=== PATIENT | female | born 1970 | race Caucasian/White ===

== ENCOUNTER → 2017-06-15 | Outpatient (CLI) | payer OTHER ==
[~2017-06-15] MED LIST: ACETAMINOPHEN/B1 TA1 PO; AMBIEN5 MG PO; AMITRIPTYLINE50 MG PO; BUTALBITAL-ASPI1 CAP PO; CEFDINIR300 MG PO; CLARITIN10 MG PO; CLEOCIN HCL300 MG PO; DOXYCYCLINE100 M3 PO; FEROSUL325 MG PO; Fioricet 325 MG1 TAB PO; IRON90 MG PO; LEVOTHYROXIN0.025 MG PO; Motrin,Rufen800 MG PO; NATURE MADE IRON PO; PREDNISONE50 MG PO; PROAIR HFA8.5 GM INH; RESTORIL30 M1 PO; SEPTRA DS 800 M1 TAB PO; Synthroid,Levo50 MCG PO; TESSALON PERLE100 M1 PO; VIBRAMYCIN100 MG PO; VITAMIN B-12500 MC2 PO; VITAMIN C500 M4 PO; VITAMIN D1000 IU PO; VITAMIN D50000 UNIT PO; ZYRTEC10 MG PO; Zofran4 MG PO
[2017-06-15 17:21] LABS: BASO # 0.1 10*3/uL (0.0-0.1); BASO % 0.9 % (0.0-1.0); EOS # 0.4 10*3/uL (0.0-0.4); EOS % 5.5 % (1.0-4.0); HEMATOCRIT 40.2 % (37.0-47.0); HEMOGLOBIN 12.7 g/dl (12.0-16.0); LYMPH # 1.5 10*3/uL (1.3-4.4); LYMPH % 21.1 % (27.0-41.0); MEAN CELL VOLUME 96.2 fl (81.0-99.0); MEAN CORPUSCULAR HGB 30.4 pg (27.0-31.0); MEAN CORPUSCULAR HGB CONC 31.6 g/dl (33.0-37.0); MEAN PLATELET VOLUME 10.2 fl (9.6-12.3); MONO # 0.5 10*3/uL (0.1-1.0); MONO % 7.4 % (3.0-9.0); NEUT # 4.6 10*3/uL (2.3-7.9); PLATELET COUNT AUTOMATED 266 10*3/uL (130-400); RED BLOOD COUNT 4.18 10*6/uL (4.10-5.10); RED CELL DISTRI WIDTH 12.9 % (0-14.5)
[2017-06-15 17:40] LABS: ALBUMIN 3.4 gm/dl (3.1-4.5); ALKALINE PHOSPHATASE 95 U/L (45-117); BUN 12 mg/dl (7-24); CHLORIDE 106 mmol/L (98-107); CREATININE 0.74 mg/dL (0.55-1.02); POTASSIUM 4.3 mmol/L (3.5-5.1); SGOT/AST 22 IU/L (3-35); SGPT/ALT 23 U/L (12-78); SODIUM 139 mmol/L (136-145); TOTAL PROTEIN 7.5 gm/dL (6.4-8.2)
[2017-06-15 17:50] LABS: VITAMIN D, 25-HYDROXY 11.6 ng/mL (30-100)
[2017-06-16 08:52] LABS: THYROXINE (T4) TOTAL 6.3 ug/dl (4.8-13.9)
[2017-06-16 08:53] LABS: T3 UPTAKE 31 % (31-39)
== END | disposition home or self-care (01) ==
LOC: LAB 16:49
PROVIDERS: Emergency Medicine
DX: J45.909 Unspecified asthma, uncomplicated (principal); I10 Essential (primary) hypertension; R79.89 Other specified abnormal findings of blood chemistry; E55.9 Vitamin D deficiency, unspecified

== ENCOUNTER 2017-07-10 09:31 | Emergency (ER) | payer OTHER ==
[~2017-07-10] VITALS: Ht 165.1 cm; Wt 102.1 kg
[2017-07-10 12:55] LABS: BILIRUBIN NEGATIVE (NEGATIVE); BLOOD NEGATIVE (NEGATIVE); CLARITY CLEAR (CLEAR); COLOR YELLOW (YELLOW); GLUCOSE NEGATIVE (NEGATIVE); KETONE NEGATIVE (NEGATIVE); LEUKO ESTERASE NEGATIVE (NEGATIVE); NITRITE NEGATIVE (NEGATIVE); PH 7.5 (5.0-9.0); UROBILINOGEN 0.2 E.U./dl (0.2-1.0)
[2017-07-10 13:02] LABS: BACTERIA 1+; EPITHELIAL CELLS 0-2; WBC 0-2 wbc/hpf (0-5)
[2017-07-10] MEDS ORDERED: Fioricet 325 MG1 TAB PO (15:14)
[2017-07-10] MEDS ORDERED: MIRALAX17 GM PO (15:14)
== END 2017-07-10 15:24 | disposition home or self-care (01) ==
LOC: ED 09:31
PROVIDERS: Emergency Medicine
DX: K59.00 Constipation, unspecified (principal); G43.909 Migraine, unspecified, not intractable, without status migrainosus; R10.9 Unspecified abdominal pain; J45.909 Unspecified asthma, uncomplicated; E03.9 Hypothyroidism, unspecified; Z90.49 Acquired absence of other specified parts of digestive tract; Z98.51 Tubal ligation status; F10.10 Alcohol abuse, uncomplicated; Z88.8 Allergy status to other drugs, medicaments and biological substances; Z88.6 Allergy status to analgesic agent; Z88.0 Allergy status to penicillin; Z91.041 Radiographic dye allergy status; Z79.899 Other long term (current) drug therapy

== ENCOUNTER → 2020-03-02 | Outpatient (CLI) | payer OTHER ==
[~2020-03-02] MED LIST changes: +MIRALAX17 GM PO
== END | disposition home or self-care (01) ==
LOC: US 09:30
DX: N93.9 Abnormal uterine and vaginal bleeding, unspecified (principal)